=== PATIENT | male | born 1960 | race Caucasian/White ===

== ENCOUNTER 2016-08-13 23:03 | Inpatient (IN) | payer OTHER ==
[~2016-08-13] VITALS: Ht 177.8 cm; Wt 90.4 kg
[~2016-08-13 23:03] MED LIST: ALPR1TAB2 PO
--- NOTE | 2016-08-13 23:03 | NUR ---
PATIENT PRESENTS TO ED WITH 5150, took "about 20 Xanax" and ETOH BIB [place] [employer] . PT STATES DENIES N/V/D; SKIN IS PINK/WARM/DRY; AAOX4 WITH EVEN AND STEADY GAIT; LUNGS CLEAR BL; HR EVEN AND REGULAR; PT DENIES ANY FEVER, CP, SOB, OR COUGH AT THIS TIME; PATIENT STATES PAIN OF 0/10 AT THIS TIME; VSS; PATIENT POSITIONED FOR COMFORT; HOB ELEVATED; BEDRAILS UP X2; BED DOWN. ER MD MADE AWARE OF PT STATUS.
--- NOTE | 2016-08-13 23:03 | NUR ---
2300--Patient was BIBA at this time and taken to bed 04 via gurney per EMS.
--- NOTE | 2016-08-13 23:04 | NUR ---
Dr. Brown evaluating patient at bedside.
[2016-08-13] MEDS ORDERED: NACL 0.9% 1,000 ML IV ONE (23:10)
[2016-08-13 23:16] VITALS: BP 126/67
[2016-08-13 23:25] LABS: HEMATOCRIT 47.6 % (36-52); HEMOGLOBIN 15.3 g/dL (12.0-18.0); MEAN CORPUSCULAR HEMOGLOBIN 29 pg (27-31); MEAN CORPUSCULAR HGB CONC 32 g/dL (33-37); MEAN CORPUSCULAR VOLUME 89 fL (80-94); PLATELET COUNT (AUTO) 155 K/uL (140-450); RED BLOOD CELL COUNT(AUTO) 5.36 MIL/uL (4.20-6.10); RED CELL DISTRIBUTION WIDTH 12.9 % (11.6-13.7); WHITE BLOOD COUNT (AUTO) 6.2 K/uL (4.8-10.8)
[2016-08-13 23:37] LABS: ANION GAP 13.2 (8-16); BAND % (MANUAL) 1 % (0-8); BASOPHILS % (MANUAL) 1 % (0-2); CALCIUM 8.2 mg/dL (8.5-10.1); CARBON DIOXIDE 28.3 mmol/L (21-32); CHLORIDE 105 mmol/L (98-107); CREATININE 1.1 mg/dL (0.6-1.3); EOSINOPHILS % (MANUAL) 1 % (0-4); GFR ARICAN-AMERICAN 89 mL/min (>90); GFR NON ARICAN-AMERICAN 74 mL/min (>90); GLUCOSE 104 mg/dL (74-106); LYMPHOCYTES % (MANUAL) 24 % (20-46); MONOCYTES % (MANUAL) 13 % (5-12); NEUTROPHILS % (MANUAL) 60 (43-65); POTASSIUM 3.5 mmol/L (3.5-5.1); SODIUM SERUM 143 mmol/L (136-145); UREA NITROGEN, BLOOD 11 mg/dL (7-18)
[2016-08-13 23:43] LABS: ALANINE AMINOTRANSFERASE 55 U/L (12-78); ALBUMIN 3.9 g/dL (3.4-5.0); ALCOHOL, BLOOD 195 mg/dL (<3); ALKALINE PHOSPHATASE 78 U/L (46-116); ASPARTATE AMINOTRANSFERASE 36 U/L (15-37); TOTAL BILIRUBIN 0.4 mg/dL (0.0-1.0); TOTAL PROTEIN, SERUM 6.9 g/dL (6.4-8.2)
[2016-08-13 23:44] LABS: ACETAMINOPHEN < 0.5 ug/ml (10-30); SALICYLATE < 2.8 mg/dL (2.8-20.0)
[2016-08-13 23:51] LABS: PROTHROMBIN TIME 9.9 secs (10.8-13.4)
[2016-08-14] VITALS (8 sets, daily range): BP systolic 97–142; BP diastolic 54–89
--- NOTE | 2016-08-14 00:18 | NUR ---
Patient appears to be resting comfortably in bed. Vital Signs within normal limits. Respirations even and unlabored, PT HAS NOT PRODUCED ANY URINE YET, BUT STATES HE WILL ATTEMPT IN A LITTLE BIT
--- NOTE | 2016-08-14 00:18 | NUR ---
ER MD DR MONSIVAIS AWARE PT HAS NOT URINE YET BUT WILL ATTEMPT TO IN A LITTLE BIT
[2016-08-14] MEDS ORDERED: NACL 0.9% 1,000 ML IV ONE (00:55)
[2016-08-14] MEDS ORDERED: ONDANSETRON 4 MG/2 ML VIAL IVP PRN (01:20)
[2016-08-14] MEDS ORDERED: MORPHINE SULFATE 2 MG/ML SYR IVP PRN (01:20)
[2016-08-14] MEDS ORDERED: ACETAMINOPHEN 325 MG TAB PO PRN (01:20)
--- NOTE | 2016-08-14 01:44 | NUR ---
Patient will be admitted to care of DR VIGIL. Admited to ICU 2 . Will go to room ICU 2. Belongings list completed. Report to ENRRIQUE ALMARAZ .
[2016-08-14] MEDS ORDERED: MULTIVITAMIN-12 10 ML, THIAMINE 100 MG, MAGNESIUM SULFATE 50% 2,000 MG, FOLIC ACID 5 MG... IV ONE ×5 (02:00)
--- NOTE | 2016-08-14 02:05 | NUR ---
RECEIVED A 55 YEAR OLD MALE FROM ER ACCOMPANIED BY 2 STAFF VIA [employer]. PATIENT ALERT, ORIENTED, VERBALLY RESPONSIVE. LEADS ATTACHED FOR MONITORING, V/S: 97.5, 71, 127/77, 22, 97% O2 SATURATION IN ROOM AIR. NO APPARENT PHYSICAL DISTRESS. ADMISSION ASSESSMENT INITIATED.
[2016-08-14 02:22] LABS: AMPHETAMINE, URINE NEG. ng/ml (NEG <=1000); BARBITURATE, URINE NEG. ng/ml (NEG <=200); BENZODIAZEPINE, URINE POS. ng/mL (NEG <=200); CANNABINOID, URINE NEG. ng/mL (NEG <=50); COCAINE, URINE NEG. ng/mL (NEG <=300); OPIATE, URINE NEG. ng/mL (NEG <=2000); PHENCYCLIDINE SCREEN,URINE NEG. ng/mL (NEG <=25)
[2016-08-14] MEDS ORDERED: THIAMINE 200 MG/2 ML VIAL ONE (02:37)
[2016-08-14] MEDS ORDERED: MULTIVITAMIN-12 10 ML VIAL IV ONE (02:37)
[2016-08-14] MEDS ORDERED: FOLIC ACID 5 MG/ML SYR ONE (02:37)
[2016-08-14] MEDS ORDERED: MAGNESIUM SULFATE 50% 1000 MG/2 ML VIAL IV ONE (02:37)
--- NOTE | 2016-08-14 02:50 | NUR ---
IVF STARTED ORDERED, INFUSING WELL ON THE RIGHT AC.
--- NOTE | 2016-08-14 03:15 | NUR ---
PATIENT ASLEEP AT THIS TIME, NO APPARENT PHYSICAL DISTRESS. FLACC 0. SAFETY PRECAUTIONS MAINTAINED. WILL CONTINUE TO MONITOR.
--- NOTE | 2016-08-14 07:30 | NUR ---
RECEIVED PATIENT ASLEEP. NO SIGN OF DISTRESS. RT ANTECUBITAL IV SITE IS PATENT AND HAS IV OF BANANA BAG INFUSING @ 100 ML/HR.
--- NOTE | 2016-08-14 08:00 | NUR ---
PATIENT IS ASLEEP. AWAKEN EASILY FOR ASSESSMENT. PATIENT IS ALERT WHILE AWAKE,ORIENTED,CALM AND COOPERATIVE. PATIENT DENIES PAIN OR SUICIDAL THOUGHT AT THIS TIME. EXPLAINED SAFETY AND PLAN OF CARE. MONITOR SHOWS SINUS RHYTHM WITH RARE PAC. RESPIRATION IS NORMAL. ROOM AIR O2 SAT 94%. LUNG SOUNDS CLEAR. NO COUGH. ABDOMEN IS SOFT. DENIES NAUSEA. NO URGE TO VOID YET. PATIENT MOVES ALL EXTREMITIES WELL WITH SELF TURN. SKIN IS WARM,DRY WITH SMALL AREA OF NONBLANCHABLE REDNESS ON RT KNEE. BILATERAL SCD'S ON. PATIENT HAS IV FLUID OF BANANA BAG INFUSING @ 100 ML/HR. CONDITION IS STABLE. CONTINUE TO OBSERVE PATIENT AND PROVIDING SAFETY ENVIRONMENT.
--- NOTE | 2016-08-14 08:54 | NUR ---
PATIENT HAS BEEN SCREENED AND CATEGORIZED MODERATE NUTRITION RISK. PATIENT WILL BE SEEN WITHIN 3-5 DAYS OF ADMISSION. 08/16/16-08/18/[address]
[2016-08-14] MEDS ORDERED: ENOXAPARIN 40 MG/0.4 ML SYR SUBQ SCH (09:00)
--- NOTE | 2016-08-14 10:00 | NUR ---
PATIENT IS RESTING COMFORTABLY @ THIS TIME. MONITOR SHOWS SINUS RHYTHM. NO SIGN OF DISTRESS.
--- NOTE | 2016-08-14 11:40 | NUR ---
PRESENT AT BEDSIDE,EXAMINED THE PATIENT. PATIENT TOLD THAT HE FEELS DEPRESSED BECAUSE OF HIS LEFT HIM. PER ; PATIENT IS MEDICALLY CLEAR FOR PSYCHOLOGY TO EVALUATE PATIENT. ORDER RECEIVED FOR PSYCH CONSULT WITH . ORDER IS CARRIED OUT.
--- NOTE | 2016-08-14 11:50 | NUR ---
CALLED AND LEFT A MESSAGE FOR REGARDING CONSULTATION AND FAXED THE FACE SHEET TO HIS OFFICE.
--- NOTE | 2016-08-14 12:00 | NUR ---
PATIENT VOIDED 600 ML CLEAR YELLOW URINE.
--- NOTE | 2016-08-14 12:30 | NUR ---
PATIENT ATE LUNCH 100% AND TAKING FLUID WELL. ALERT,ORIENTED,CALM AND COOPERATIVE. PATIENT DENIES SUICIDAL THOUGHT. NURSE MADE PATIENT AWARE OF PSYCHOLOGIST IS COMING TO SEE HIM TODAY.
--- NOTE | 2016-08-14 13:00 | NUR ---
I.V OF BANANA BAG IS COMPLETED. SALINE LOCK TO IV. ENCOURAGING PT TO DRINK A LOT OF WATER.
--- NOTE | 2016-08-14 14:00 | NUR ---
PATIENT ON THE BEDPAN. HAS MODERATE AMT OF SOFT BROWN STOOL. CLEANED PATIENT.
--- NOTE | 2016-08-14 14:05 | NUR ---
PSYCHOLOGIST PRESENT AT BEDSIDE. PATIENT SPEAKS MOSTLY NORWEGIAN. PATIENT REQUIRED AN MICA MINER. PROVIDED PATIENT WITH [employer] PHONE WITH MICA MINER NAME LUCITA Klein # [id number]
--- NOTE | 2016-08-14 14:30 | NUR ---
SPOKE TO PATIENT 'S DAUGHTER NAME KAREN CASTILLO BY PHONED.
--- NOTE | 2016-08-14 14:35 | NUR ---
PER ; PATIENT IS PSYCHOLOGICALLY CLEAR AND PATIENT CAN BE DISCHARGED HOME IF PATIENT IS MEDICALLY CLEAR. HAVE PATIENT CALL [facility]UR[facility] TO SCHEDULE FOR OUT PATIENT PSYCHIATRIC CLINIC.
--- NOTE | 2016-08-14 14:45 | NUR ---
PAGED , WHICH HE CALLED BACK RIGHT AWAY. SPOKE TO EDU AT THIS TIME. RECEIVED THE ORDER FROM TO DISCHARGE PATIENT HOME.
--- NOTE | 2016-08-14 15:00 | NUR ---
CONDITION IS STABLE. DENIES PAIN. WAITING FOR HIS DAUGHTER TO PICK HIM UP.
--- NOTE | 2016-08-14 16:08 | NUR ---
PATIENT'S DAUGHTER NAME KAREN PRESENT AT BEDSIDE. PATIENT IS ALERT,ORIENTED AND COOPERATIVE. NO CHANGE IN CONDITION. REMOVED THE IV ON RT AC WITH CATHETER IS INTACT. HAVE PATIENT OUT OF BED AND AMBULATE AROUND THE BED,WHICH PATIENT TOLERATED WELL. HELPING PATIENT GETTING DRESS.
--- NOTE | 2016-08-14 16:15 | NUR ---
DISCHARGE INSTRUCTION WAS EXPLAINED TO PATIENT AND PATIENT'S DAUGHTER,WHICH THEY VERBALIZED UNDERSTANDING AND SIGNED THE PAPER. GIVEN PATIENT DISCHARGE INSTRUCTION PACKAGE TO PATENT'S DAUGHTER TO TAKE CARE OF.
--- NOTE | 2016-08-14 16:20 | NUR ---
DISCHARGED PATIENT HOME VIA A W/C TO PRIVATE CAR WITH HIS DAUGHTER KAREN CASTILLO
--- NOTE | 2016-08-16 07:47 | NUR ---
RETRO REVIEW ER REPORT, H&P , CONSULT AND DISCHARGE SUMMARY FAXED TO [facility] [phone] PHONE GARY [phone] [id number]
== END 2016-08-14 16:20 | disposition home or self-care (01) | DRG 812 ==
LOC: MED 23:03 → MIC 08-14 01:25
PROVIDERS: ADMIT Internal Medicine Pulmonary Disease; ATTEND Internal Medicine Pulmonary Disease
DX: T42.4X2A Poisoning by benzodiazepines, intentional self-harm, initial encounter (principal); G92 Toxic encephalopathy; F33.2 Major depressive disorder, recurrent severe without psychotic features; F10.229 Alcohol dependence with intoxication, unspecified; I10 Essential (primary) hypertension; R45.851 Suicidal ideations; F41.9 Anxiety disorder, unspecified; Y90.6 Blood alcohol level of 120-199 mg/100 ml; Z79.899 Other long term (current) drug therapy; Y92.89 Other specified places as the place of occurrence of the external cause
CPT/HCPCS: 36415; 80053; 80305; 85025; 85610; 87081; 93005; 96360; 96361; 99285; A9153; C1758; G0480; G0482; J1650; J3411; J3475; J3490; J7030

== ENCOUNTER 2016-08-18 18:18 | Emergency (ER) | payer OTHER ==
[~2016-08-18] VITALS: Ht 167.6 cm; Wt 90.9 kg
[2016-08-18 19:00] VITALS: BP 155/107
--- NOTE | 2016-08-18 21:31 | NUR ---
PTs daughter arrived and wants to take pt home. Pt states he wants to go home. PATIENT LEFT WITHOUT BEING SEEN BY DR. Brown. NO FURTHER CARE PROVIDED FOR PATIENT.
== END 2016-08-18 21:31 | disposition left against medical advice (07) ==
LOC: MED 18:18
DX: F10.10 Alcohol abuse, uncomplicated (principal); Z53.21 Procedure and treatment not carried out due to patient leaving prior to being seen by health care provider
CPT/HCPCS: 82948

== ENCOUNTER 2016-08-21 07:55 | Emergency (ER) | payer OTHER ==
[~2016-08-21] VITALS: Ht 172.7 cm; Wt 93.0 kg
[2016-08-21 08:05] VITALS: BP 153/101
--- NOTE | 2016-08-21 09:40 | NUR ---
56/M C/O TOOK 13 XANAX 2 DAYS AGO AND WANTS TO MAKE SURE HE IS OK, VSS, NO VISUAL SIGNS OF DISTRESS NOTED. PT STATES ABDOMINAL PAIN BUT DENIES N/V/D; SKIN IS PINK/WARM/DRY; AAOX4 WITH EVEN AND UNSTEADY GAIT AMBULATES W/ CANE; LUNGS CLEAR BL; HR EVEN AND REGULAR; PT DENIES ANY FEVER, CP, SOB, OR COUGH AT THIS TIME; PATIENT STATES PAIN OF 5/10 AT THIS TIME; VSS; PATIENT POSITIONED FOR COMFORT; HOB ELEVATED; BEDRAILS UP X2; BED DOWN. ER MD MADE AWARE OF PT STATUS.
--- NOTE | 2016-08-21 09:40 | NUR ---
Patient ambulated to bed 5. RN evaluating patient at bedside.
[2016-08-21] MEDS ORDERED: NACL 0.9% 1,000 ML IV SCH (09:42)
[2016-08-21 10:18] LABS: BASOPHILS # (AUTO) 0.2 K/uL (0.00-0.22); BASOPHILS % (AUTO) 3.6 % (0.0-2.0); EOSINOPHILS # (AUTO) 0.4 K/uL (0-0.4); EOSINOPHILS % (AUTO) 7.9 % (0.0-4.0); HEMOGLOBIN 15.3 g/dL (12.0-18.0); LYMPHOCYTES # (AUTO) 1.3 K/uL (2.0-11.5); LYMPHOCYTES % (AUTO) 22.7 % (20.5-51.1); MEAN CORPUSCULAR HEMOGLOBIN 29 pg (27-31); MEAN CORPUSCULAR HGB CONC 33 g/dL (33-37); MEAN CORPUSCULAR VOLUME 87 fL (80-94); MONOCYTES # (AUTO) 0.4 K/uL (0.8-1.0); MONOCYTES % (AUTO) 6.3 % (1.7-9.3); NEUTROPHILS # (AUTO) 3.3 K/uL (1.8-7.7); NEUTROPHILS % (AUTO) 59.5 % (42.2-75.2); PLATELET COUNT (AUTO) 142 K/uL (140-450); RED BLOOD CELL COUNT(AUTO) 5.31 MIL/uL (4.20-6.10); WHITE BLOOD COUNT (AUTO) 5.6 K/uL (4.8-10.8)
--- NOTE | 2016-08-21 10:19 | NUR ---
Dr. Donovan evaluating patient at bedside.
--- NOTE | 2016-08-21 10:20 | NUR ---
Patient appears to be resting comfortably in bed. Respirations even and unlabored.WILL CONTINUE TO MONITOR
[2016-08-21 10:28] LABS: INR 1.1 (0.8-1.2); PARTIAL THROMBOPLASTIN TIME 25.4 secs (22-35.6); PROTHROMBIN TIME 10.2 secs (10.8-13.4)
[2016-08-21 10:30] LABS: ANION GAP 13.7 (8-16); CALCIUM 8.1 mg/dL (8.5-10.1); CARBON DIOXIDE 26.6 mmol/L (21-32); CREATININE 0.9 mg/dL (0.6-1.3); POTASSIUM 3.3 mmol/L (3.5-5.1)
[2016-08-21 10:31] LABS: ALBUMIN 3.6 g/dL (3.4-5.0); TOTAL PROTEIN, SERUM 6.9 g/dL (6.4-8.2)
[2016-08-21 10:36] LABS: AMYLASE 45 U/L (25-115); LIPASE 66 U/L (73-393)
[2016-08-21 11:47] LABS: APPEARANCE,URINE CLEAR (CLEAR); BILIRUBIN,URINE NEGATIVE (NEGATIVE); BLOOD, URINE TRACE-L (NEGATIVE); COLOR,URINE YELLOW (YELLOW); LEUKOCYTE ESTERASE ,URINE NEGATIVE (NEGATIVE); NITRITE, URINE NEGATIVE (NEGATIVE); PH,URINE 5.5 (5.0-9.0); PROTEIN,URINE NEGATIVE (NEGATIVE); UGLUCOSE NEGATIVE (NEGATIVE); UROBILINOGEN,URINE 0.2 EU/dL (0.2 - 1)
--- NOTE | 2016-08-21 11:50 | NUR ---
IV removed, catheter intact and site benign. Applied folded 4x4 gauze and tape to stop bleeding.
[2016-08-21 11:56] LABS: BACTERIA,URINE None Seen /HPF (None Seen); RBC,URINE 0-5 (RARE) /HPF (0-5); SQUAMOUS EPITHELIAL CELL,UR None Seen /LPF (0-3 (FEW)); WBC,URINE 0-5 (RARE) /HPF (0-5)
[2016-08-21 11:57] LABS: AMPHETAMINE, URINE NEG. ng/ml (NEG <=1000); BARBITURATE, URINE NEG. ng/ml (NEG <=200); BENZODIAZEPINE, URINE POS. ng/mL (NEG <=200); CANNABINOID, URINE NEG. ng/mL (NEG <=50); COCAINE, URINE NEG. ng/mL (NEG <=300); OPIATE, URINE NEG. ng/mL (NEG <=2000); PHENCYCLIDINE SCREEN,URINE NEG. ng/mL (NEG <=25)
[2016-08-21 12:00] VITALS: BP 140/86
--- NOTE | 2016-08-21 12:00 | NUR ---
Patient discharged with v/s stable. Written and verbal after care instructions given and explained. Patient verbalized understanding. Ambulatory with steady gait. All questions addressed prior to discharge. Advised to follow up with PMD.
== END 2016-08-21 12:00 | disposition home or self-care (01) ==
LOC: MED 07:55
DX: F33.9 Major depressive disorder, recurrent, unspecified (principal); I10 Essential (primary) hypertension; F10.10 Alcohol abuse, uncomplicated; Y90.9 Presence of alcohol in blood, level not specified
CPT/HCPCS: 36415; 80053; 80305; 81001; 82150; 82553; 83690; 83880; 84484; 85025; 85610; 85730; 93005; 96360; 99285; G0482; J7030; 81025

== ENCOUNTER 2016-08-24 20:21 | Emergency (ER) | payer OTHER ==
[~2016-08-24] VITALS: Ht 172.7 cm; Wt 90.7 kg
[2016-08-24 20:42] VITALS: BP 140/90
--- NOTE | 2016-08-24 21:54 | NUR ---
PATIENT LEFT WITHOUT BEING SEEN BY DR. PORTER. NO FURTHER CARE PROVIDED FOR PATIENT.
== END 2016-08-24 21:42 | disposition left against medical advice (07) ==
LOC: MED 20:21
DX: R22.9 Localized swelling, mass and lump, unspecified (principal); F10.10 Alcohol abuse, uncomplicated; Z53.21 Procedure and treatment not carried out due to patient leaving prior to being seen by health care provider; Y90.9 Presence of alcohol in blood, level not specified

== ENCOUNTER 2016-08-25 22:02 | Inpatient (IN) | payer OTHER ==
[~2016-08-25] VITALS: Ht 170.2 cm; Wt 87.2 kg
[~2016-08-25 22:02] MED LIST changes: -ALPR1TAB2 PO; +XANAX1 MG PO
[2016-08-25 22:10] VITALS: BP 153/98
--- NOTE | 2016-08-25 22:18 | NUR ---
Patient ambulated to bed 04.
--- NOTE | 2016-08-25 22:32 | NUR ---
Dr. Diamond evaluating patient at bedside.
[2016-08-25] MEDS ORDERED: NACL 0.9% 1,000 ML IV ONE (22:35)
--- NOTE | 2016-08-25 22:45 | NUR ---
GAUGE 18 IV LINE ESTABLISHED TO THE RIGHT HAND. NS 1 LITER BOLUS GIVEN.
--- NOTE | 2016-08-25 22:55 | NUR ---
[place] [employer] at bedside.
--- NOTE | 2016-08-25 23:17 | NUR ---
[place] [employer] PLACED PATIENT ON 5150 HOLD FOR DANGER TO SELF. WILL CLOSELY MONITOR.
[2016-08-26] VITALS (9 sets, daily range): BP systolic 149–167; BP diastolic 78–97
--- NOTE | 2016-08-26 01:08 | NUR ---
ASLEEP, NOT IN ANY KIND OF DISTRESS. NO PAIN OR DISCOMFORT NOTED. VS REAMIN STABLE.
[2016-08-26] MEDS ORDERED: LORazepam 2 MG/ML VIAL IVP ONE (02:40)
[2016-08-26] MEDS ORDERED: NACL 0.9% 1,000 ML IV ONE (02:45)
[2016-08-26] MEDS ORDERED: LORazepam 2 MG/ML VIAL IVP PRN (03:00)
[2016-08-26] MEDS ORDERED: ONDANSETRON 4 MG/2 ML VIAL IVP PRN (03:00)
[2016-08-26] MEDS ORDERED: ACETAMINOPHEN 325 MG TAB PO PRN (03:00)
[2016-08-26] MEDS ORDERED: HYDROcodone/APAP 5/325 MG 1 TAB TAB PO PRN (03:00)
--- NOTE | 2016-08-26 03:13 | NUR ---
XRAY AT BEDSIDE
--- NOTE | 2016-08-26 03:22 | NUR ---
PT LEFT TO CT VIA GURNEY ACCOMPANIED BY INSURANCE MARKETING SPECIALIST
--- NOTE | 2016-08-26 03:22 | NUR ---
Patient going to CT via nara powell.
--- NOTE | 2016-08-26 03:40 | NUR ---
Pt report given to DAVE ALMARAZ . Transfer of care at this time.
--- NOTE | 2016-08-26 03:40 | NUR ---
Patient will be admitted to care of DR GALVAN . Admited to ICU 5. Will go to room ICU 5. Belongings list completed. Report to DAVE ALMARAZ .
--- NOTE | 2016-08-26 04:00 | NUR ---
PT ARRIVED ON UNIT FROM ER VIA [facility]. PT AMBULATED TO BED FROM [facility] WITH NO PROBLEM PT IS AAOX 3, PRIMARILY OCCITAN SPEAKING BUT CAN UNDERSTAND AND SPEAK SOME TAIWANESE. PT PLACED ONTO MONITOR. CURRENT TEMP IS 98.9F PT IS ON ROOM AIR WITH NO S/S OF ACUTE RESPIRATORY DISTRESS AT THIS TIME. TRANSITION MANAGER SHOWS AT SR AT THIS TIME WITH A HR OF 77. PT HAS RIGHT HAND #18 RUNNING NS AT 100ML/HR AT THIS TIME. IV SITE IS PATENT DRY AND INTACT. GOOD BLOOD RETURN NOTED. PATIENT SKIN IS INTACT BUT HAS OLD ABRASIONS NOTED ON RIGHT WRIST, LEFT HAND AND BILATERAL KNEES. ORIENTED TO UNIT, BED IN LOW POSITION, HOB UP, CALL LIGHT LEFT WITHIN REACH. WILL CONTINUE TO CLOSELY MONITOR.
[2016-08-26] MEDS: NACL 0.9% 1,000 ML IV SCH ×2 (04:05→12:37)
--- NOTE | 2016-08-26 06:51 | NUR ---
PT SLEEPING IN BED. EASILY AROUSABLE TO NAME CALLING. NO SIGNS OF DISCOMFORT AT THIS TIME. NO S/S OF ACUTE RESP DISTRESS AT THIS TIME. CALL LIGHT LEFT WITHIN REACH. HOB UP, BED IN LOW POSITION. WILL CONTINUE MONITOR.
--- NOTE | 2016-08-26 07:09 | NUR ---
ENDORSED PLAN OF CARE TO DAY NURSE SUNG MILLER FOR TRANSFER OF CARE. PT STABLE AT THIS TIME.
--- NOTE | 2016-08-26 07:54 | NUR ---
PATIENT HAS BEEN SCREENED AND CATEGORIZED LOW NUTRITION RISK. PATIENT WILL BE SEEN WITHIN 7 DAYS OF ADMISSION. 09/01/[address]
--- NOTE | 2016-08-26 08:00 | NUR ---
INITIAL SHIFT ASSESSMENT DONE (SEE ASSESSMENT PART). AAOX3. NO SUICIDAL IDEATION NOTED. FITCH AND FOLLOWING COMMANDS. NO C/O PAIN OR DYSPNEA. O2 SAT 92-97% ON ROOM AIR. SR ON MONITOR. SBP IN 150'S. NO ECTOPY NOTED. HOB ELEVATED. UPDATED OF PLAN OF CARE. WILL CONTINUE TO MONITOR.
--- NOTE | 2016-08-26 08:10 | NUR ---
GIVEN BREAKFAST TRAY.
--- NOTE | 2016-08-26 08:45 | NUR ---
HAS BM IN THE BEDSIDE COMMODE AT THIS TIME, LARGE AMOUNT, SOFT, AND BROWN COLOR. PERICARE DONE BY THE PATIENT HIMSELF. TOLERATED THE PROCEDURE WELL.
[2016-08-26] MEDS ORDERED: ENOXAPARIN 40 MG/0.4 ML SYR SUBQ SCH (09:00)
--- NOTE | 2016-08-26 10:00 | NUR ---
HAS BM AGAIN IN THE BEDSIDE COMMODE, MODERATE AMOUNT, SOFT, AND BROWN COLOR. PERICARE DONE BY THE PATIENT HIMSELF. TOLERATED THE PROCEDURE WELL. NO C/O PAIN OR DYSPNEA. O2 SAT 92-96% ON ROOM AIR. ST ON MONITOR. SBP IN 150'S. NO ECTOPY NOTED. HOB ELEVATED. WILL CONTINUE TO MONITOR.
--- NOTE | 2016-08-26 11:27 | NUR ---
CM NOTE INITIAL REVIEW SENT TO [facility] FAX# [phone] PH# GARY [phone]
--- NOTE | 2016-08-26 11:50 | NUR ---
GIVEN LUNCH TRAY
--- NOTE | 2016-08-26 12:00 | NUR ---
REASSESSMENT DONE. NEURO STATUS UNCHANGED. NO C/O PAIN OR DYSPNEA. O2 SAT 91-97% ON ROOM AIR. ST ON MONITOR. SBP IN 160'S. NO ECTOPY NOTED. STILL EATING LUNCH. HOB ELEVATED. UPDATED OF PLAN OF CARE. WILL CONTINUE TO MONITOR.
[2016-08-26] MEDS ORDERED: PROBIOTIC SCREEN 1 EA MISC MC PRN (13:35)
--- NOTE | 2016-08-26 14:00 | NUR ---
RESTING IN BED, WATCHING TV. NO C/O PAIN OR DYSPNEA. O2 SAT 92-96% ON ROOM AIR. SR ON MONITOR. SBP IN 150'S. NO ECTOPY NOTED. HOB ELEVATED. WILL CONTINUE TO MONITOR.
[2016-08-26] MEDS ORDERED: POTASSIUM CHLORIDE 10 MEQ TABER PO SCH (14:01)
--- NOTE | 2016-08-26 15:00 | NUR ---
HAS BM AGAIN IN THE BEDSIDE COMMODE, MODERATE AMOUNT, SOFT, AND BROWN COLOR. PERICARE DONE BY THE PATIENT HIMSELF. TOLERATED THE PROCEDURE WELL.
--- NOTE | 2016-08-26 15:25 | NUR ---
DR BRIGHT IS IN THE ROOM WITH WELL HEAD PUMPER JESSE TALKING AND ASKING QUESTION TO THE PATIENT.
--- NOTE | 2016-08-26 15:40 | NUR ---
DR BRIGHT DONE TALKING TO THE PATIENT. DR BRIGHT STATED THAT THE PATIENT IS NOT A CANDIDATE FOR 5150 AND IS CLEARED TO GO HOME PER PSYCHIATRY STAND-POINT.
--- NOTE | 2016-08-26 16:00 | NUR ---
REASSESSMENT DONE. AAOX3. WATCHING TV AT THIS TIME. NO C/O PAIN OR DYSPNEA. O2 SAT 91-96% ON ROOM AIR. SR ON MONITOR. SBP IN 150'S. NO ECTOPY NOTED. HOB ELEVATED. UPDATED OF PLAN OF CARE. WILL CONTINUE TO MONITOR.
--- NOTE | 2016-08-26 17:20 | NUR ---
DR SHEN IS IN THE ROOM. MD TALKING TO THE PATIENT. DISCHARGE TO HOME ORDERED IN CPOE.
--- NOTE | 2016-08-26 17:40 | NUR ---
DAUGHTER IS IN THE ROOM. DR SHEN TALK TO THE DAUGHTER OF THE PATIENT.
--- NOTE | 2016-08-26 18:00 | NUR ---
GIVEN DISCHARGE INSTRUCTIONS BY SUNG BERNARD.
--- NOTE | 2016-08-26 18:28 | NUR ---
OUT OF THE UNIT TO HOME ACCOMPANIED BY DAUGHTER AND BAKING FACTORY WORKER TO A WAITING CAR OUTSIDE THE LOBBY DRIVEN BY THE DAUGHTER.
== END 2016-08-26 20:00 | disposition home or self-care (01) | DRG 775 ==
LOC: MED 22:02 → MIC 08-26 03:03 → MTU 08-26 19:11 → MIC 08-26 19:58
PROVIDERS: ADMIT Internal Medicine Pulmonary Disease; ATTEND Internal Medicine Pulmonary Disease
DX: F10.229 Alcohol dependence with intoxication, unspecified (principal); F33.2 Major depressive disorder, recurrent severe without psychotic features; R45.851 Suicidal ideations; F41.0 Panic disorder [episodic paroxysmal anxiety]; F41.9 Anxiety disorder, unspecified; E87.6 Hypokalemia; I10 Essential (primary) hypertension; Y90.6 Blood alcohol level of 120-199 mg/100 ml; F13.10 Sedative, hypnotic or anxiolytic abuse, uncomplicated; Z56.0 Unemployment, unspecified

== ENCOUNTER 2018-04-14 20:17 | Emergency (ER) | payer OTHER ==
[~2018-04-14] VITALS: Ht 170.2 cm; Wt 90.7 kg
[2018-04-14 20:25] VITALS: BP 137/80
--- NOTE | 2018-04-14 20:25 | NUR ---
Pt ambulated to bed 11.
--- NOTE | 2018-04-14 20:41 | NUR ---
Called and spoke with poison control, spoke with Kiarra and reported pt's status. Recommendations: No charcoal Check tylenol, aspirin, chemistry, drug screen, blood alcohol level Watch for MOUNTER FLUTES AND PICCOLOS and respiratory depression Supportive care
--- NOTE | 2018-04-14 20:48 | NUR ---
PATIENT MOVED TO ER BED 5 FOR SI PRECAUTIONS.
--- NOTE | 2018-04-14 20:57 | NUR ---
Contacted [facility] to request evaluation of pt for 5150 placement. Spoke with Seleen. Officer to be dispatched out.
--- NOTE | 2018-04-14 20:58 | NUR ---
Security called to bedside for belongings check.
--- NOTE | 2018-04-14 21:14 | NUR ---
All belongings sent with security and taken to office.
[2018-04-14] MEDS ORDERED: ALPR2TAB1 PO (21:16)
[2018-04-14 21:20] LABS: BASOPHILS # (AUTO) 0.1 K/uL (0.00-0.22); BASOPHILS % (AUTO) 1.3 % (0.0-2.0); EOSINOPHILS # (AUTO) 0.2 K/uL (0-0.4); EOSINOPHILS % (AUTO) 3.4 % (0.0-4.0); HEMATOCRIT 46.7 % (36-52); HEMOGLOBIN 15.3 g/dL (12.0-18.0); LYMPHOCYTES # (AUTO) 2.2 K/uL (2.0-11.5); LYMPHOCYTES % (AUTO) 43.4 % (20.5-51.1); MEAN CORPUSCULAR HEMOGLOBIN 28 pg (27-31); MEAN CORPUSCULAR HGB CONC 33 g/dL (33-37); MEAN CORPUSCULAR VOLUME 85.8 fL (80-94); MONOCYTES # (AUTO) 0.4 K/uL (0.8-1.0); MONOCYTES % (AUTO) 8.4 % (1.7-9.3); NEUTROPHILS # (AUTO) 2.2 K/uL (1.8-7.7); NEUTROPHILS % (AUTO) 43.5 % (42.2-75.2); PLATELET COUNT (AUTO) 214 K/uL (140-450); RED BLOOD CELL COUNT(AUTO) 5.45 MIL/uL (4.20-6.10); RED CELL DISTRIBUTION WIDTH 15.5 % (11.6-13.7)
[2018-04-14 21:42] LABS: ANION GAP 13.9 (8-16); CARBON DIOXIDE 28.4 mmol/L (21-32); CHLORIDE 102 mmol/L (98-107); CREATININE 0.9 mg/dL (0.7-1.3); GFR ARICAN-AMERICAN 111 mL/min (>90); GLUCOSE 113 mg/dL (74-106); POTASSIUM 3.3 mmol/L (3.5-5.1); SODIUM SERUM 141 mmol/L (136-145); UREA NITROGEN, BLOOD 4 mg/dL (7-18)
[2018-04-14 21:48] LABS: ALBUMIN 3.6 g/dL (3.4-5.0); ASPARTATE AMINOTRANSFERASE 43 U/L (15-37); TOTAL BILIRUBIN 0.5 mg/dL (0.0-1.0)
[2018-04-14 22:01] LABS: SALICYLATE < 2.8 mg/dL (2.8-20.0)
[2018-04-14 22:02] LABS: ACETAMINOPHEN < 0.5 ug/ml (10-30)
[2018-04-14 22:49] LABS: APPEARANCE,URINE CLEAR (CLEAR); BILIRUBIN,URINE NEGATIVE (NEGATIVE); BLOOD, URINE NEGATIVE (NEGATIVE); COLOR,URINE YELLOW (YELLOW); LEUKOCYTE ESTERASE ,URINE NEGATIVE (NEGATIVE); NITRITE, URINE NEGATIVE (NEGATIVE); UGLUCOSE NEGATIVE (NEGATIVE)
[2018-04-14 23:05] LABS: BARBITURATE, URINE NEG. ng/ml (NEG <=200); BENZODIAZEPINE, URINE POS. ng/mL (NEG <=200); CANNABINOID, URINE NEG. ng/mL (NEG <=50); COCAINE, URINE NEG. ng/mL (NEG <=300); OPIATE, URINE NEG. ng/mL (NEG <=2000); PHENCYCLIDINE SCREEN,URINE NEG. ng/mL (NEG <=25)
--- NOTE | 2018-04-14 23:07 | NUR ---
PT LYING IN BED, VITALS STABLE
--- NOTE | 2018-04-14 23:15 | NUR ---
Poison control called back. Updated on status. Poison control to close case. NAD noted.
--- NOTE | 2018-04-14 23:33 | NUR ---
SUBMITTED TELEPSYCH REQUEST AT THIS TIME
--- NOTE | 2018-04-15 00:14 | NUR ---
SPOKE TO DAUGHTER WINTER. CONTACT NUMBER IS [phone].
--- NOTE | 2018-04-15 01:54 | NUR ---
PT SITTING UP IN BED, VITALS STABLE. TELE PSYCH TO CONSULT WITHIN THE HOUR. ER MD NOTIFIED
--- NOTE | 2018-04-15 02:05 | NUR ---
SPOKE TO TELEPSYCH MD. ALVAREZ TO ASSESS PT WITHIN 30 MIN.
--- NOTE | 2018-04-15 02:10 | NUR ---
TELEPSYCH MD SPEAKING AT PT BEDSIDE VIA MONITOR. ER MD MADE AWARE
--- NOTE | 2018-04-15 02:16 | NUR ---
SPOKE TO DR. GATES TELEPSYCH , FEELS PT IS NOT A 5150 NOR ADMIT AT THIS TIME. PT IS TO GET OUT PATIENT REFERRAL TO SEE SUBSTANCE ABUSE COUNCILING AND PSYCH [place]. MD WILL FAX OVER REPORT. ER MADE AWARE OF STATUS.
[2018-04-15 04:18] VITALS: BP 131/95
--- NOTE | 2018-04-15 04:18 | NUR ---
Patient discharged with v/s stable. Written and verbal after care instructions given and explained. Patient verbalized understanding. Ambulatory with steady gait. All questions addressed prior to discharge. Advised to follow up with PMD. GAVE PT A REFERRAL LIST OF COUNCILING AND SUBSTANCE ABUSE/ALCOHOL ABUSE SUPPORT GROUPS.
== END 2018-04-15 04:18 | disposition home or self-care (01) ==
LOC: MED 20:17
DX: F10.129 Alcohol abuse with intoxication, unspecified (principal); T42.4X2A Poisoning by benzodiazepines, intentional self-harm, initial encounter; I10 Essential (primary) hypertension; E78.00 Pure hypercholesterolemia, unspecified; F32.9 Major depressive disorder, single episode, unspecified; Z79.899 Other long term (current) drug therapy; Y92.89 Other specified places as the place of occurrence of the external cause
CPT/HCPCS: 36415; 80053; 80305; 81003; 85025; 93005; 99284; G0480; G0482

== ENCOUNTER 2018-12-06 16:35 | Emergency (ER) | payer OTHER ==
[~2018-12-06] VITALS: Ht 170.2 cm; Wt 90.7 kg
[~2018-12-06 16:35] MED LIST changes: +ALPR2TAB1 PO; -XANAX1 MG PO
--- NOTE | 2018-12-06 16:38 | NUR ---
Patient ambulated to bed 8. RN evaluating patient at bedside.
[2018-12-06 16:43] VITALS: BP 144/77
--- NOTE | 2018-12-06 17:00 | NUR ---
58 Y MALE BIB SELF C/O LEFT KNEE PAIN X1 DAY, STATES HE FELL YESTERDAY AND HIT HIS L KNEE ON [facility]. REPORT RECIEVED FROM CHE ALMARAZ. +SWELLING, +ROM WITH PAIN 11/22. +L PEDAL PULSE. +CAP REFILL <3 SECONDS. VSS AT THIS TIME. NEPALI SPEAKING ONLY. AA0X4. BED IS DOWN, LOCKED, BED RAIL X 1,E RMD TO SEE PT. HX DM, HIGH CHOLESTEROL, GASTRITIS
--- NOTE | 2018-12-06 17:02 | NUR ---
DR KENNEDY AT BEDSIDE
[2018-12-06] MEDS ORDERED: KETOROLAC 60 MG/2 ML VIAL IM ONE (17:05)
--- NOTE | 2018-12-06 17:15 | NUR ---
TORADOL IM ADMINISTERED. PT TOLERATED WELL
[2018-12-06 18:00] VITALS: BP 133/93
--- NOTE | 2018-12-06 18:17 | NUR ---
Patient discharged BY DR KENNEDY. Written and verbal after care instructions given and explained BY DR KENNEDY. Patient alert, oriented and Ambulatory with steady gait. ID band removed. Rx of NAPROSYN given.
== END 2018-12-06 18:17 | disposition home or self-care (01) ==
LOC: MED 16:35
DX: S80.02XA Contusion of left knee, initial encounter (principal); S80.01XA Contusion of right knee, initial encounter; I10 Essential (primary) hypertension; E78.00 Pure hypercholesterolemia, unspecified; Z87.19 Personal history of other diseases of the digestive system; Z96.653 Presence of artificial knee joint, bilateral; V28.4XXA Motorcycle driver injured in noncollision transport accident in traffic accident, initial encounter; Y93.89 Activity, other specified; Y92.89 Other specified places as the place of occurrence of the external cause; Y99.8 Other external cause status
CPT/HCPCS: 96372; 99283; J1885

== ENCOUNTER 2020-08-14 13:04 | Emergency (ER) | payer OTHER ==
[~2020-08-14] VITALS: Ht 170.2 cm; Wt 97.5 kg
[2020-08-14 13:26] VITALS: BP 146/76
--- NOTE | 2020-08-14 13:33 | NUR ---
WINTER : DAUGHTER [phone]
--- NOTE | 2020-08-14 13:52 | NUR ---
59 YEAR OLD MALE REFERRED FROM CLINIC. C/O LEFT FOOT NUMBNESS & SWELLING X 1 WEEK. PT HAD LEFT KNEE SURGERY 3 MONTHS AGO. POOR SKIN TURGOR TO LEG, CAP REFILL <3, PATIENT HAS LOST SENSATION IN MULTIPLE AREAS OF FOOT, BUT IS STILL ABLE TO AMBULATE WITH SLOW GAIT. PMH: LAKISHA
[2020-08-14 16:38] VITALS: BP 146/76
--- NOTE | 2020-08-14 16:38 | NUR ---
Patient discharged with v/s stable. Written and verbal after care instructions given and explained. Patient alert, oriented and verbalized understanding of instructions. Ambulatory with steady gait. All questions addressed prior to discharge. ID band removed. Patient advised to follow up with PMD. Patient educated on indication of medication including possible reaction and side effects. Opportunity to ask questions provided and answered.
== END 2020-08-14 16:38 | disposition home or self-care (01) ==
LOC: MED 13:04
DX: L81.9 Disorder of pigmentation, unspecified (principal); I10 Essential (primary) hypertension; Z98.890 Other specified postprocedural states; Z79.899 Other long term (current) drug therapy
CPT/HCPCS: 73620; 93925; 99284